=== PATIENT | male | born 1955 | race Caucasian/White ===

== ENCOUNTER → 2017-05-18 | Outpatient (CLI) | payer BC ==
[~2017-05-18] MED LIST: EPP3 IM; SERT50TA PO; SIMV40TA2 PO
--- NOTE | 2017-05-18 07:23 | DIAGNOSTIC IMAGING REPORT ---
CT LUNG SCREENING, LOW DOSE WITH COMPUTER-AIDED DETECTION (CAD) CLINICAL HISTORY: Lung nodule screening COMPARISON STUDY: No previous studies for comparison. CT DOSE: 79.94 mGy.cm TECHNIQUE: Low-dose helical CT was acquired without intravenous contrast from lung apices to bases and reconstructed at 2.5 mm every 2 mm. CAD was utilized for this study. FINDINGS: Lungs are clear. 8 mm low suspicion nodule inferior to the right hilum. Mild cardiomegaly. Several small mediastinal nodes too small to be significant clinically. Limited evaluation of the upper abdomen is unremarkable IMPRESSION: 8 mm low suspicion nodule inferior to the right hilum. Otherwise negative study. Nodule 1 Category: 3 Nodule 1 Status: Baseline Nodule 1 Description: Solid Nodule 1 Lesion ID: 1 Nodule 1 Slice Number: 85 Nodule 1 Volume (mm3): 114 Nodule 1 Major [place] mm: 7.8 Nodule 1 Minor [place] mm: 3.8 CAD FINDINGS: Overall Lung RADS Category: 3 Lung RADS Management Recommendation: Lung-RADS 3: Continue screening in 6 months. Lung RADS Follow Up Date: 2017-11-18 Lung RADS Nodule ID: 1 Electronically signed by: Joe Sierra M.D. 05/18/2017 7:22 AM Dictated Date/Time: 05/18/2017 7:12 AM
== END | disposition home or self-care (01) ==
LOC: C.CTS 06:43
PROVIDERS: ATTEND Internal Medicine
DX: Z87.891 Personal history of nicotine dependence (principal)

== ENCOUNTER → 2017-11-30 | Outpatient (CLI) | payer OTHER ==
--- NOTE | 2017-12-01 12:53 | DIAGNOSTIC IMAGING REPORT ---
CT CT HIGH RISK DIAGNOSTIC CHEST WITH COMPUTER-AIDED DETECTION (CAD) CLINICAL HISTORY: Follow-up pulmonary nodule. COMPARISON STUDY: Low dose screening CT May 18, 2017. CT DOSE: 324.06 mGy.cm TECHNIQUE: Axial images of the chest were obtained without IV contrast. Images were reviewed in the axial, sagittal, and coronal planes. IV contrast was not administered for this examination. A dose lowering technique was utilized adhering to the principles of ALARA. FINDINGS: No enlarged axillary, mediastinal or hilar lymph nodes are present. The size of the heart is normal. There is no pericardial effusion. The central airways are patent. There is no consolidation to suggest pneumonia. No pneumothorax or pleural effusion is noted. A 6 mm perifissural nodule within the posterior segment of the right upper lobe shown on image 104 of 281 is unchanged since low dose screening CT of May 18, 2017. A 3 mm left lower lobe nodule shown image 158 is also likely unchanged. This was obscured on prior exam given atelectasis. No new nodules are present. Bony thorax and upper abdomen are unremarkable on this unenhanced exam. IMPRESSION: 1. No change in a 6 mm perifissural nodule within the right upper lobe since CT of May 18, 2017. This is likely benign and the patient can return to routine annual low dose screening CT on May 18, 2018. This is now characterized as a lung RADS 2 lesion. 2. No change in a 3 mm left lower lobe nodule which was likely present on prior exam but obscured by atelectasis. This is likely benign and can be assessed on annual low-dose screening CT. CAD FINDINGS: Overall Lung RADS Category: 2 Lung RADS Management Recommendation: 2 - Resume annual lung cancer screening. Lung RADS Follow Up Date: May 18, 2018. Electronically signed by: Rob Lund M.D. 12/01/2017 12:52 PM Dictated Date/Time: 11/30/2017 4:33 PM
== END | disposition home or self-care (01) ==
LOC: C.CTS 16:04
PROVIDERS: ATTEND Internal Medicine
DX: R91.1 Solitary pulmonary nodule (principal)

== ENCOUNTER → 2018-01-10 | Day surgery (SDC) | payer BC, OTHER ==
[2017-12-28 12:21] VITALS: Ht 175.3 cm; Wt 84.1 kg
[~2018-01-10] VITALS: Ht 175.3 cm; Wt 84.1 kg
[~2018-01-10] MED LIST changes: +ATOR-22 PO; -EPP3 IM; +LEVO50TA6 PO; +LIDOCAINE HCL 2% 2 ML VIAL (20MG/ML) ONE; +PROPOFOL IV EMULSION 10 MG/ML 20 ML VIAL IV ONE; -SERT50TA PO; -SIMV40TA2 PO; +SODIUM CHLORIDE 0.9% 500ML 500 ML IV ONE
[2018-01-10 14:00] VITALS: TEMP 36.7
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
--- NOTE | 2018-01-10 14:42 | Discharge Instructions ---
Endoscopy Patient Instructions Date / Procedure(s) Performed Jan 10, 2018. Colonoscopy Allergy Information Coded Allergies: BEE STING (Verified Allergy, Unknown, ANAPHYLAXIS, 01/10/18) NO KNOWN DRUG ALLERGIES (Verified Allergy, Unknown, ., 01/10/18) Discharge Date / Findings Jan 10, 2018. Colon polyps Rectal polyp Diverticulosis Internal hemorrhoids Medication Instructions OK to resume all medications today as prescribed Reported Home Medications Medications Dose Route/Sig Max Daily Dose Days Date Category Levothyroxine Sodium 50 Mcg Tab 1 Tab PO HS 12/28/17 Reported Lipitor (Atorvastatin Calcium) 20 Mg Tab 20 Mg PO HS 12/28/17 Reported Provider Instructions Activity Restrictions - No exercising or heavy lifting for 24 hours. - Do not drink alcohol the day of the procedure. - Do not drive a car or operate machinery until the day after the procedure. - Do not make any important decisions or sign important papers in 24 hours after the procedure. Following Day: - Return to full activity which may include returning to work/school. Diet Start your diet with liquids and light foods (jello, soup, juice, toast). Then eat your usual diet if not nauseated. Treatment For Common After Affects For mild abdominal pain, bloating, or excessive gas: - Rest - Eat lightly - Lie on right side Follow-Up Information Follow-up with DR GOVEA as scheduled Anesthesia Information What You Should Know You have had a procedure that required some medicine to reduce anxiety and discomfort. This treatment is called moderate sedation. After receiving the treatment, you may be sleepy, but you will be able to breathe on your own. The effects of the treatment may last for several hours. Follow these instructions along with Activity/Diet recommendations noted above: * Do NOT do anything where dizziness or clumsiness would be dangerous. * Rest quietly at home today, then you can be up and about tomorrow. * Have a responsible person stay with you the rest of today. * You may have had an I.V. today. If so, you may take the dressing off later today. Recommendations Call your doctor if: * Trouble breathing * Continuous vomiting for more than 24 hours * Temperature above 101 degrees * Severe abdominal pain or bloating * Pain not relieved by pain medicine ordered * There is increased drainage or redness from any incision * A large amount of rectal bleeding greater than 2-3 tablespoons. (If you had a polyp/s removed or have hemorrhoids, a small amount of blood - from the rectum is to be expected.) * You have any unanswered questions or concerns. IN THE EVENT OF A SERIOUS EMERGENCY, GO TO THE NEAREST EMERGENCY ROOM Your discharge instructions were prepared by provider Salvatore Antonio. Patient Instructions Signature Page Ousmane Borja Patient (or Guardian) Signature/Date: I have read and understand the instructions given to me by my caregivers. Caregiver/RN/Doctor Signature/Date: The above-named patient and/or guardian has received patient instructions on this date. + Original Patient Signature Page (only) stays with chart. Please make copy for patient.
--- NOTE | 2018-01-10 14:51 | GI REPORT ---
Procedure Date: 01/10/2018 2:08 PM Procedure: Colonoscopy Indications: Screening for colorectal malignant neoplasm Medicines: Monitored Anesthesia Care Complications: No immediate complications. Estimated Blood Loss: Estimated blood loss: none. Procedure: Pre-Anesthesia Assessment: - Prior to the procedure, a History and Physical was performed, and patient medications and allergies were reviewed. The patient's tolerance of previous anesthesia was also reviewed. The risks and benefits of the procedure and the sedation options and risks were discussed with the patient. All questions were answered, and informed consent was obtained. Prior Anticoagulants: The patient has taken no previous anticoagulant or antiplatelet agents. ASA Grade Assessment: II - A patient with mild systemic disease. After reviewing the risks and benefits, the patient was deemed in satisfactory condition to undergo the procedure. After I obtained informed consent, the scope was passed under direct vision. Throughout the procedure, the patient's blood pressure, pulse, and oxygen saturations were monitored continuously. The Scope was introduced through the anus and advanced to the terminal ileum. The colonoscopy was performed without difficulty. The patient tolerated the procedure well. The quality of the bowel preparation was good. The terminal ileum, ileocecal valve, appendiceal orifice, and rectum were photographed. Findings: The perianal and digital rectal examinations were normal. Four sessile polyps were found in the rectum, sigmoid colon and cecum. The polyps were 4 to 7 mm in size. These polyps were removed with a hot snare. Resection and retrieval were complete. Multiple small-mouthed diverticula were found in the sigmoid colon. Non-bleeding internal hemorrhoids were found during retroflexion. The hemorrhoids were small. Impression: - Four 4 to 7 mm polyps in the rectum, in the sigmoid colon and in the cecum, removed with a hot snare. Resected and retrieved. - Diverticulosis in the sigmoid colon. - Non-bleeding internal hemorrhoids. Recommendation: - Resume previous diet. - Continue present medications. - Repeat colonoscopy for surveillance based on pathology results. - Return to primary care physician as previously scheduled. Salvatore Antonio DO 01/10/2018 2:50:59 PM This report has been signed electronically. Note Initiated On: 01/10/2018 2:08 PM I attest to the content of the Intraoperative Record and orders documented therein, exceptions below
--- NOTE | 2018-01-10 15:05 | Anesthesiology Progress Note ---
Anesthesia Post Op Note Date & Time Jan 10, 2018 at 15:05 Vital Signs Pain Intensity: 0 Vital Signs Past 12 Hours Date Time Temp Pulse Resp B/P (MAP) Pulse Ox O2 Delivery O2 Flow Rate FiO2 01/10/18 14:00 36.7 60 16 131/79 (96) 97 Room Air Notes Mental Status: alert / awake / arousable, participated in evaluation Pt Amnestic to Procedure: Yes Nausea / Vomiting: adequately controlled Pain: adequately controlled Airway Patency, RR, SpO2: stable & adequate BP & HR: stable & adequate Hydration State: stable & adequate Anesthetic Complications: no major complications apparent
[2018-01-10 15:09] VITALS: BP 123/73; PULSE 58; O2SAT 99
== END | disposition home or self-care (01) ==
LOC: C.GI 13:27
PROVIDERS: ATTEND Internal Medicine
DX: Z12.11 Encounter for screening for malignant neoplasm of colon (principal); D12.0 Benign neoplasm of cecum; D12.5 Benign neoplasm of sigmoid colon; D12.8 Benign neoplasm of rectum; K57.30 Diverticulosis of large intestine without perforation or abscess without bleeding; K64.8 Other hemorrhoids; Z91.030 Bee allergy status; Z90.81 Acquired absence of spleen; Z87.891 Personal history of nicotine dependence